=== PATIENT | male | born 1960 | race Caucasian/White ===

== ENCOUNTER 2024-04-25 17:30 | Emergency (ER) | payer BC ==
[~2024-04-25] VITALS: Ht 167.6 cm; Wt 83.9 kg
--- NOTE | 2024-04-25 17:58 | EKG ---
[facility] Test Date: 2024-04-25 Test Time: 17:52:49 Pat Name: ROHAN JACINTO Department: ED Room: Gender: Emt/Paramedic: [facility] : 1960 Requested By: BOBO BRUNO Order Number: [id number] Reading MD: Adal Patterson Measurements Intervals [place] Rate: 65 P: 262 NH: 182 QRS: -10 QRSD: 91 T: 29 QT: 403 QTc: 420 Interpretive Statements Sinus or ectopic atrial rhythm No previous ECG available for comparison Electronically Signed On 04-27-2024 19:57:43 [employer]ON HAND[employer] by Adal Patterson Please click the below link to view image of tracing.
[2024-04-25 18:04] LABS: BASOPHILS # (AUTO) 0.07 K/uL (0.00-0.20); EOSINOPHILS # (AUTO) 0.07 K/uL (0.00-0.70); HEMATOCRIT 43.6 % (42-54); IMMATURE GRANULOCYTE ABSOLUTE 0.02 K/uL (0-1); LYMPHOCYTES # (AUTO) 1.4 K/uL (1.0-4.8); LYMPHOCYTES % (AUTO) 19.9 % (21.0-51.0); MEAN CORPUSCULAR HEMOGLOBIN 34.2 pg (27.0-33.0); MEAN CORPUSCULAR HGB CONC 35.1 g/dL (32.0-36.0); MEAN CORPUSCULAR VOLUME 97.3 fL (79-99); MONOCYTES # (AUTO) 0.7 K/uL (0.1-1.0); MONOCYTES % (AUTO) 9.6 % (3.0-13.0); NEUTROPHILS # (AUTO) 4.6 K/uL (1.8-7.7); NEUTROPHILS % (AUTO) 68.2 % (40.0-77.0); PLATELET COUNT (AUTO) 190 K/uL (130-400); RED BLOOD CELL COUNT(AUTO) 4.48 MIL/uL (4.50-6.20); RED CELL DISTRIBUTION WIDTH 11.3 % (11.0-15.5); WHITE BLOOD COUNT (AUTO) 6.8 K/uL (4.8-10.8)
[2024-04-25 18:14] LABS: CREATININE 0.9 mg/dL (0.5-1.3); POTASSIUM 3.9 mmol/L (3.5-5.1)
[2024-04-25 18:16] VITALS: BP 152/91; PULSE 68; RESP 16; TEMP 98.3; O2SAT 98
[2024-04-25 18:19] LABS: INR 1.07 (0.85-1.15); MAGNESIUM 1.9 mg/dL (1.80-2.40); PROTHROMBIN TIME 11.5 SEC (9.6-11.6)
--- NOTE | 2024-04-25 18:19 | HMCIMG ---
CT HEAD/BRAIN W/O CONTRAST CLINICAL HISTORY: ams COMPARISON: None TECHNIQUE: Multiple sequential axial images of the head were obtained from the base of the skull through vertex. CT was performed with one or more of the following dose reduction techniques: automated exposure control, adjustment of the mA and/or kV according to patient size, or use of iterative reconstruction technique FINDINGS: There is mild atrophy and small vessel disease. The orbital contents, paranasal sinuses and mastoid air cells are within normal limits. The calvarium is intact. IMPRESSION: There are no acute findings.
[2024-04-25 18:20] LABS: PARTIAL THROMBOPLASTIN TIME 26.7 SEC (26.3-35.5)
--- NOTE | 2024-04-25 18:26 | HMCIMG ---
CHEST 1VW CLINICAL HISTORY: chest COMPARISON: None TECHNIQUE: Single view of the chest was obtained. FINDINGS: Lungs are clear. The cardiac size and mediastinum are unremarkable. The bony structures are within normal limits. IMPRESSION: No acute cardiopulmonary process identified.
[2024-04-25 18:28] LABS: B-TYPE NATRIURETIC PEPTIDE 15 pg/mL (0-100)
--- NOTE | 2024-04-25 18:41 | ERN ---
General Chief Complaint: Altered Mental Status Stated Complaint: ALTERERED MENTAL STAUS Time Seen by MD: 17:33 Source: patient History of Present Illness Initial Comments Patient is a 63-year-old male coming in to be evaluated for episodes of confusion. Per family members patient has been having these symptoms for greater than six months. Patient has not been seen by his PCP due non adherence to clinical visits. Allergies: Coded Allergies: No Known Drug Allergies (Unverified Allergy, Unknown, 04/25/24) Past Medical History Past Medical History: No Pertinent History Past Surgical History: None ROS Dictation CONSTITUTIONAL: No chills, no fever, no weakness, no diaphoresis, no malaise. HEAD/FACE: No signs of trauma. EENT: No eye pain, no blurred vision, no tearing, no double vision, no ear pain, no ear discharge, no nose pain, no nasal congestion, no throat pain, no throat swelling, no mouth pain. RESPIRATORY: No cough, no orthopnea, no SOB, no stridor, no wheezing. CARDIOVASCULAR: No chest pain, no edema, no palpitations, no syncope. GASTROINTESTINAL/ABDOMINAL: No abdominal pain, no constipation, no diarrhea, no nausea, no vomiting. GENITOURINARY: No abnormal discharge, no dysuria, no frequent urination, no hematuria. No complaints of pain in the genitals. MUSCULOSKELETAL: No back pain, no gout, no joint pain, no joint swelling, no muscle pain, no muscle stiffness, no neck pain. INTEGUMENTARY: No change in color, no change in hair/nails, no dryness, no lesion, no lumps, no rash. NEUROLOGICAL/PSYCH: No anxiety, not depressed, no emotional problem, no headache, no numbness, no pre-existing deficit, no history of seizures, no tremors, no weakness. HEMATOLOGIC/LYMPHATIC: Not anemic, no history of blood clots, no apparent bleeding, no bruising, glands not swollen. All Systems Negative, Except as Noted. Physical Exam Physical Exam Dictation VITAL SIGNS: Reviewed. GENERAL APPEARANCE: Alert, oriented x3, no acute distress, obese. HEAD AND FACE: Non-traumatic. EYES: PERRL, pink conjunctivas, eyelid no trauma, anterior chamber clear. EARS: Pinnas intact and no signs of trauma or erythema. Ear canals clear and no discharge. TMs no erythema. NOSE: No discharge, no bleeding. OROPHARYNX: Mouth normal, teeth no caries, tongue pink. Pharynx clear, no erythema. Tonsils no exudates, no abscesses noted. Mucous membrane moist. NECK: Supple, non-tender, no thyromegaly, no masses, no JVD, no bruits. BREAST: Deferred. CHEST: No tenderness, no crepitus, no paradoxical movement, no retractions. LUNGS: Clear, well-ventilated, symmetric, no rales, no wheezing, no rhonchi, no stridor, good breath sounds bilaterally. HEART: Regular rate, regular rhythm, no murmur, no gallops. VASCULAR: No peripheral edema. ABDOMEN: Soft, positive bowel sounds, nondistended, no guarding, nontender, no rebound, no masses no hepatomegaly, no splenomegaly, no Choi's sign, no hernias. RECTAL: Deferred. GENITAL: Deferred. NEUROLOGICAL: Normal speech, gross motor function intact, gross sensory funct ion intact. MUSCULOSKELETAL: Neck nontender, full range of motion, back nontender, full range of motion. EXTREMITIES: Nontender, full range of motion. SKIN: Color pink, dry, no turgor, no rash, no lacerations, no abrasions, no contusions. LYMPHATICS: Deferred. Results Laboratory and Microbiology Lab and Micro Result Laboratory Tests Test 04/25/24 17:50 White Blood Count 6.8 K/uL (4.8-10.8) Red Blood Count 4.48 MIL/uL (4.50-6.20) L Hemoglobin 15.3 g/dL (14.0-18.0) Hematocrit 43.6 % (42-54) Mean Corpuscular Volume 97.3 fL (79-99) Mean Corpuscular Hemoglobin 34.2 pg (27.0-33.0) H Mean Corpuscular Hemoglobin Concent 35.1 g/dL (32.0-36.0) Red Cell Distribution Width 11.3 % (11.0-15.5) Platelet Count 190 K/uL (130-400) Mean Platelet Volume 9.1 fL (7.5-10.5) Immature Granulocyte % (Auto) 0.3 % (0-1) Neutrophils (%) (Auto) 68.2 % (40.0-77.0) Lymphocytes (%) (Auto) 19.9 % (21.0-51.0) L Monocytes (%) (Auto) 9.6 % (3.0-13.0) Eosinophils (%) (Auto) 1.0 % (0.0-8.0) Basophils (%) (Auto) 1.0 % (0.0-5.0) Neutrophils # (Auto) 4.6 K/uL (1.8-7.7) Lymphocytes # (Auto) 1.4 K/uL (1.0-4.8) Monocytes # (Auto) 0.7 K/uL (0.1-1.0) Eosinophils # (Auto) 0.07 K/uL (0.00-0.70) Basophils # (Auto) 0.07 K/uL (0.00-0.20) Absolute Immature Granulocyte (auto 0.02 K/uL (0-1) Nucleated Red Blood Cells 0.0 % (0.0-0.19) Prothrombin Time 11.5 SEC (9.6-11.6) Prothromb Time International Ratio 1.07 (0.85-1.15) Activated Partial Thromboplast Time 26.7 SEC (26.3-35.5) Sodium Level 135 mmol/L (136-145) L Potassium Level 3.9 mmol/L (3.5-5.1) Chloride Level 98 mmol/L (101-111) L Carbon Dioxide Level 28 mmol/L (21-32) Blood Urea Nitrogen 16 mg/dL (7-18) Creatinine 0.9 mg/dL (0.5-1.3) Glomerular Filtration Rate Calc 97 mL/min (>90) Random Glucose 98 mg/dL (70-105) Total Calcium 8.4 mg/dL (8.5-10.1) L Magnesium Level 1.90 mg/dL (1.80-2.40) Ammonia 20 umol/L (11-32) Total Creatine Kinase 76 U/L (21-232) Troponin I High Sensitivity 17 ng/L (4-75) B-Type Natriuretic Peptide 15 pg/mL (0-100) Labs Reviewed?: Yes EKG/XRAY/US/CT/MRI X-RAY Comment [address] [place] [address], [place] [address] IMAGING REPORT Signed PATIENT: ROHAN JACINTO MR#: [id number] : 1960 SEX: M AGE: 63 LOCATION: ED ORDER 41 STATUS: REG ER HOSPITAL REPORT#: [id number] SERVICE 39 REASON: chest ORDERING PHYSICIAN: BOBO BRUNO MD PROCEDURE: CXR1VW - CHEST 1VW CHEST 1VW CLINICAL HISTORY: chest COMPARISON: None TECHNIQUE: Single view of the chest was obtained. FINDINGS: Lungs are clear. The cardiac size and mediastinum are unremarkable. The bony structures are within normal limits. IMPRESSION: No acute cardiopulmonary process identified. DICTATED BY: BRIGHT JACOBS DO DATE: 04/25/241823 ELECTRONICALLY SIGNED BY: BRIGHT JACOBS DO DATE: 04/25/241825 CT Scan Comment [place] [id number] IMAGING REPORT Signed PATIENT: ROHAN JACINTO MR#: [id number] : 1960 SEX: M AGE: 63 LOCATION: ED ORDER 41 STATUS: REG ER REPORT#: [id number] SERVICE 39 REASON: ams ORDERING PHYSICIAN: BOBO BRUNO MD PROCEDURE: HEAD WO - CT HEAD/BRAIN W/O CONTRAST CT HEAD/BRAIN W/O CONTRAST CLINICAL HISTORY: ams COMPARISON: None TECHNIQUE: Multiple sequential axial images of the head were obtained from the base of the skull through vertex. CT was performed with one or more of the following dose reduction techniques: automated exposure control, adjustment of the mA and/or kV according to patient size, or use of iterative reconstruction technique FINDINGS: There is mild atrophy and small vessel disease. The orbital contents, paranasal sinuses and mastoid air cells are within normal limits. The calvarium is intact. IMPRESSION: There are no acute findings. DICTATED BY: BRIGHT JACOBS DO DATE: 04/25/241815 ELECTRONICALLY SIGNED BY: BRIGHT JACOBS DO DATE: 04/25/241818 [facility] MDM: Differential diagnosis: Rationale: Tests considered and ordered secondary to shared decision making include: Previous outside records reviewed: Old ER visits. Risk of complication and/or morbidity or mortality of patient management: None Medications-Per medication reconciliation Need for hospitalization: Patient does not meet criteria for hospitalization. Need for emergency major/minor surgery: No There are no social concerns with this patient. Prescription drug management Prescriptions will include symptomatic care Patient's prior external medical records from other ER visits were reviewed by me as indicated. Prior testing and results from previous visits were reviewed. Prior tests were taken into account with medical decision making and resource utilization, independent historian/historians were used to obtain complete medical history. I independently interpreted the test that were performed, results were reviewed by me and considered findings on radiology if ordered. Medical management and examination interpretation discussions were had by me with other qualified healthcare professionals as indicated for the patient's care. ED Course Orders Procedure Category Date Status Time Cbc With Differential LAB 04/25/24 Complete 17:40 Prothrombin Time With LAB 04/25/24 Complete INR 17:40 B-Type Natriuretic LAB 04/25/24 Complete Peptide 17:40 Chest 1vw RAD 04/25/24 Resulted 17:40 12 Lead Ekg Tracing- EKG 04/25/24 Complete Technical 17:40 Magnesium LAB 04/25/24 Complete 17:40 Creatine Kinase, Total LAB 04/25/24 Complete 17:40 Troponin I High LAB 04/25/24 Complete Sensitivity 17:40 Urinalysis Profile LAB 04/25/24 In Process 17:40 Partial LAB 04/25/24 Complete Thromboplastin Time 17:40 Basic Metabolic Panel LAB 04/25/24 Complete 17:40 Ct Head/Brain W/O CT 04/25/24 Resulted Contrast 17:40 Ammonia LAB 04/25/24 Complete 17:44 Drug Screen Urine LAB 04/25/24 In Process 17:44 Vital Signs Date Time Temp Pulse Resp B/P (MAP) Pulse Ox O2 Delivery O2 Flow Rate FiO2 04/25/24 18:16 98.2 68 16 152/91 98 Room Air* 0 21 04/25/24 17:32 98.4 77 18 150/97 98 0 DX & DISP Disposition: Other(Comment) (Patient care transitioned to Dr. Morales) Departure Condition: Stable Referrals: SELF,REFERRAL (PCP) BOBO BRUNO MD Apr 25, 2024 18:41
[2024-04-25 18:49] LABS: AMPHET/METH SCREEN,URINE NEGATIVE (NEGATIVE); BARBITURATE SCREEN, URINE NEGATIVE (NEGATIVE); BENZODIAZEPINES SCREEN,URINE POSITIVE (NEGATIVE); CANNABINOID SCREEN,URINE NEGATIVE (NEGATIVE); COCAINE SCREEN,URINE NEGATIVE (NEGATIVE); OPIATE SCREEN,URINE NEGATIVE (NEGATIVE); PHENCYCLIDINE SCREEN,URINE NEGATIVE (NEGATIVE)
[2024-04-25 18:51] LABS: APPEARANCE,URINE CLEAR (CLEAR); BILIRUBIN,URINE NEGATIVE (NEGATIVE); COLOR,URINE YELLOW (YELLOW); GLUCOSE, URINE (UA) NEGATIVE (NEGATIVE); KETONES,URINE 10 mg/dL (NEGATIVE); LEUKOCYTE ESTERASE ,URINE NEGATIVE Leu/uL (NEGATIVE); NITRATE,URINE NEGATIVE (NEGATIVE); OCCULT BLOOD,URINE NEGATIVE (NEGATIVE); PROTEIN,URINE NEGATIVE (NEGATIVE); UROBILINOGEN,URINE 0.2 mg/dL (0.2-1.0)
[2024-04-25 19:01] LABS: ADD UA MICROSCOPIC NO
== END 2024-04-25 19:50 | disposition home or self-care (01) ==
LOC: EDH 17:30
DX: R41.82 Altered mental status, unspecified (principal)
CPT/HCPCS: 36415; 70450; 71045; 80048; 80305; 81003; 82140; 82550; 83735; 83880; 84484; 85025; 85610; 85730; 93005; 99285

== ENCOUNTER 2024-07-30 09:54 | Emergency (ER) | payer BC ==
[~2024-07-30] VITALS: Ht 180.3 cm; Wt 83.9 kg
[2024-07-30 09:55] VITALS: BP 133/79; PULSE 64; RESP 20; TEMP 98
--- NOTE | 2024-07-30 10:12 | ERN ---
General Chief Complaint: Finger Injury Stated Complaint: RT MIDDLE FINGER PROBLEM Time Seen by MD: 10:04 Time Seen by Midlevel: 10:04 Source: patient History of Present Illness Initial Comments Patient is a 64-year-old male presenting to the emergency department with a trigger finger to the right middle finger. The patient states that has been ongoing for two months. He was not seen a primary care doctor or specialist for this issue. He was wondering if there was a surgeon available to fixed his today. Denies any other symptoms at this time. Denies any direct injury to the area. Allergies: Coded Allergies: No Known Drug Allergies (Unverified Allergy, Unknown, 04/25/24) Past Medical History Past Medical History: No Pertinent History Past Surgical History: None ROS Dictation CONSTITUTIONAL: Negative except for HPI HEAD/FACE: Negative except for HPI EENT: Negative except for HPI RESPIRATORY: Negative except for HPI GASTROINTESTINAL/ABDOMINAL: Negative except for HPI GENITOURINARY: Negative except for HPI MUSCULOSKELETAL: Negative except for HPI INTEGUMENTARY: Negative except for HPI NEUROLOGICAL/PSYCH: Negative except for HPI HEMATOLOGIC/LYMPHATIC: Negative except for HPI All Systems Negative, Except as noted above. 13 point review of systems assessed and all negative except for above. Physical Exam Physical Exam Dictation PHYSICAL EXAM: GENERAL: alert,, awake oriented x 3 HEENT: EOMI, Sclera non icteric, moist mucosa NECK: Supple, no JVD, trachea midline LUNGS: Clear breath sounds bilaterally. No wheezes HEART: Regular rate and rhythm. Normal S1 and S2, without murmurs ABD: Abdomen soft, nontender. Bowel sounds present EXT: Right middle finger is flexed, unable to extend the right middle finger NEURO: Alert and oriented to person, follows commands MDM MDM: Patient is a 64-year-old male presenting to the emergency department with a trigger finger to the right middle finger. The patient states that has been ongoing for two months. He was not seen a primary care doctor or specialist for this issue. He was wondering if there was a surgeon available to fixed his t david. Denies any other symptoms at this time. Denies any direct injury to the area. On physical examination the patient was in no acute distress. The right middle finger is flexed. We are unable to extend the right middle finger. His physical examination is consistent with a trigger finger. The patient will need to follow up with Orthopedics/plastic surgeon outpatient for further evaluation. I have given him to doctors that he may follow up with outpatient. Patient was refusing pain medication at this time. Patient is stable for discharge Differential diagnosis: Trigger finger, fracture, contusion There are no social concerns with this patient. Prescription drug management Prescriptions will include: None Medical management and examination interpretation discussions were had by me with other qualified healthcare professionals as indicated for the patient's care. ED Course Vital Signs Date Time Temp Pulse Resp B/P (MAP) Pulse Ox O2 Delivery O2 Flow Rate FiO2 07/30/24 09:55 98.1 64 20 133/79 99 Room Air 0 DX & DISP Disposition: Discharge Departure Impression: Primary Impression: Trigger finger of right hand Condition: Stable Additional Instructions: Your physical examination is consistent with a trigger finger. This is not something that needs emergent intervention. You will need to follow up outpatient. You will need to see a plastic surgeon/museum informatics specialist for outpatient evaluation. I have given you a referral to museum informatics specialist Dr. Ybarra. His office should be able to see an ER walk in Saturday through Saturday 8-11 a.m.. I have also given you another referral to plastic surgeon by the name of Danay Astorga. He is located on [address] [place] [address], [id number]. Referrals: SELF,REFERRAL (PCP) DAMIEN YBARRA MD Time of Disposition: 10:10 I have reviewed the case, and I agree with, Diagnosis and Plan I performed the substantive portion of the visit. I have reviewed and pe rsonally made and approve the management plan that is documented in the note by myself or the NIGEL. I acknowledge for responsibility for the patient's management plan. RUBEN MATHUR Jul 30, 2024 10:12
== END 2024-07-30 10:19 | disposition home or self-care (01) ==
LOC: EDH 09:54
DX: M65.331 Trigger finger, right middle finger (principal); X58.XXXA Exposure to other specified factors, initial encounter; Y93.89 Activity, other specified; Y92.89 Other specified places as the place of occurrence of the external cause; Y99.8 Other external cause status
CPT/HCPCS: 99281